=== PATIENT | female | born 1930 | race Caucasian/White ===

== ENCOUNTER → 2016-09-16 | Outpatient (CLI) | payer MEDICARE, BC ==
--- NOTE | 2016-09-17 07:57 | US ---
EXAMINATION TYPE: US carotid duplex BILAT DATE OF EXAM: 09/16/2016 4:38 PM COMPARISON: NONE CLINICAL HISTORY: Near Syncope R55. EXAM MEASUREMENTS: RIGHT: Peak Systolic Velocity (PSV) cm/sec ----- Right CCA: 41.8 ----- Right ICA: 95.5 ----- Right ECA: 75.3 ICA/CCA ratio: 2.3 RIGHT: End Diastole cm/sec ----- Right CCA: 10.4 ----- Right ICA: 30.1 ----- Right ECA: 0.0 LEFT: Peak Systolic Velocity (PSV) cm/sec ----- Left CCA: 67.7 ----- Left ICA: 62.6 ----- Left ECA: 53.7 ICA/CCA ratio: 0.9 LEFT: End Diastole cm/sec ----- Left CCA: 14.3 ----- Left ICA: 20.3 ----- Left ECA: 0.0 VERTEBRALS (direction of flow): Right Vertebral: Antegrade Left Vertebral: Antegrade No significant stenosis seen. IMPRESSION: 1. Right-sided ICA stenosis estimated at between 1569%. Mild plaque seen. 2. No significant stenosis left carotid system. Criteria for Assigning % of Stenosis / Diameter reduction (Estimation based on the indirect measurements of the internal carotid artery velocities (ICA PSV). 1. Normal (no stenosis)=ICA PSV < 125 cm/s: ratio < 2.0: ICA EDV<40 cm/s. 2. Less than 50% stenosis=ICA PSV < 125 cm/s: ratio < 2.0: ICA EDV<40 cm/s. 3. 50 to 69% stenosis=ICA PSV of 125 to 230 cm/s: ration 2.0 ? 4.0: ICA EDV 40-100 cm/s. 4. Greater than 70% stenosis to near occlusion= ICA PSV > 230 cm/s: ratio > 4.0: ICA EDV > 100 cm/s. 5. Near occlusion= ICA PSV velocities may be low or undetectable: variable ratio and ICA EDV. 6. Total occlusion=unable to detect flow.
== END | disposition home or self-care (01) ==
LOC: RADUSWWP 16:12
PROVIDERS: ATTEND Family Medicine
DX: I65.21 Occlusion and stenosis of right carotid artery (principal)
CPT/HCPCS: 93880

== ENCOUNTER → 2016-12-18 | Outpatient (CLI) | payer MEDICARE, BC | END | disposition home or self-care (01) | LOC: LABWHC1 10:13 | PROVIDERS: ATTEND Internal Medicine Endocrinology, Diabetes & Metabolism | DX: E03.8 Other specified hypothyroidism (principal) | CPT/HCPCS: 36415; 84439; 84443 ==

== ENCOUNTER → 2017-02-15 | Outpatient (CLI) | payer MEDICARE, BC | END | disposition home or self-care (01) | LOC: LABWHC1 10:17 | PROVIDERS: ATTEND Internal Medicine Endocrinology, Diabetes & Metabolism | DX: E03.8 Other specified hypothyroidism (principal) | CPT/HCPCS: 36415; 84439; 84443 ==

== ENCOUNTER → 2017-04-04 | Outpatient (CLI) | payer MEDICARE, BC ==
--- NOTE | 2017-04-04 17:21 | US ---
EXAMINATION TYPE: US thyroid st tissue head/neck DATE OF EXAM: 04/04/2017 COMPARISON: NONE CLINICAL HISTORY: E04.1 Rt Neck Nodule. Pt states recent abnormal labs GLAND SIZE: Right Lobe: 3.6 x 2.3 x 2.4 cm Overall Parenchyma: heterogenous Left Lobe: 3.7 x 1.2 x 1.2 cm Overall Parenchyma: heterogeneous Isthmus Thickness: 0.3 cm NODULES RIGHT: # of nodules measured on right: 3 1. 1.3 X 1.1 x 1.4 cm hypoechoic mixed nodule at the mid pole with well-defined margins; This nodul e is wider than tall and shows intranodular vascularity. Prior size: No prior 2. 2.0 X 1.3 x 1.7 cm hypoechoic solid nodule at the lower pole with well-defined margins; This nodu le is wider than tall and shows intranodular vascularity. Prior size: No prior 3. 0.8 X 0.6 x 0.7 cm isoechoic solid nodule at the upper pole with poorly defined margins;This nodu le is wider than tall and shows intranodular vascularity. Prior size: No prior LEFT: # of nodules measured on left: 3 1. 0.6 X 0.6 x 0.6 cm hypoechoic solid nodule at the upper pole with well-defined margins; This no dule is wider than tall and shows intranodular vascularity. Prior size: No prior 2. 0.7 X 0.7 x 0.6 cm isoechoic solid nodule at the upper pole with well-defined margins; This nodu le is wider than tall and shows intranodular vascularity. Prior size: No prior 3. 0.8 X 0.9 x 0.8 cm isoechoic solid nodule at the mid pole with well-defined margins; This nodule is wider than tall and shows intranodular vascularity. Prior size: No prior ISTHMUS: # of nodules measured in the isthmus: 0 Bilateral neck scanned, no evidence of lymphadenopathy. Multiple nodules bilaterally, largest 3 measu red on each side, with hypervascular thyroid gland bilaterally IMPRESSION: Findings are consistent with multinodular goiter. No dominant thyroid mass seen.
== END | disposition home or self-care (01) ==
LOC: RADUSWWP 16:11
PROVIDERS: ATTEND Family Medicine
DX: E04.1 Nontoxic single thyroid nodule (principal)
CPT/HCPCS: 76536

== ENCOUNTER → 2017-08-19 | Outpatient (CLI) | payer MEDICARE, BC | END | disposition home or self-care (01) | LOC: LABWHC1 11:23 | PROVIDERS: ATTEND Internal Medicine Endocrinology, Diabetes & Metabolism | DX: E03.8 Other specified hypothyroidism (principal) | CPT/HCPCS: 36415; 84443 ==

== ENCOUNTER → 2017-10-06 | Outpatient (CLI) | payer MEDICARE, BC ==
--- NOTE | 2017-10-06 11:54 | US ---
EXAMINATION TYPE: US thyroid st tissue head/neck DATE OF EXAM: 10/06/2017 COMPARISON: NONE CLINICAL HISTORY: E03.08 HYPOTHYROIDISM,R53.83 FATIGUE; takes thyroid medication GLAND SIZE: Right Lobe: 3.6 x 2.6 x 2.1cm Overall Parenchyma: heterogenous Left Lobe: 2.9 x 1.3 x 1.3 cm Overall Parenchyma: heterogeneous Isthmus Thickness: 0.6 cm NODULES RIGHT: # of nodules measured on right: 3 1. 1.3 X 1.3 x 1.3 cm hypoechoic mixed nodule at the mid pole with well-defined margins. This nodu le is wider as is tall and shows no intranodular vascularity. Prior size: 1.3 x 1.1 x 1.4 cm 2. 2.3 X 1.3 x 1.2 cm hypoechoic mixed nodule at the lower pole with well-defined margins. This nod ule is wider than tall and shows intranodular vascularity. Prior size: 2.3 x 1.3 x 1.7 cm 3. 0.9 X 1.0 x 0.9 cm hyperechoic mixed nodule at the upper pole with well-defined margins. This no dule is wider than tall and shows intranodular vascularity. Prior size: 0.8 x 0.6 x 0.7 cm LEFT: # of nodules measured on left: 4 largest of multiple 1. 0.6 X 0.6 x 0.6 cm hypoechoic mixed nodule at the upper pole with well-defined margins. This no dule is wide as is tall and shows intranodular vascularity. Prior size: 0.6 x 0.6 x 0.6 cm 2. 0.9 X 0.7 x 0.7 cm hypoechoic solid nodule at the upper pole with well-defined margins. This nod ule is wide as is tall and shows intranodular vascularity. Prior size: 0.7 x 0.7 x 0.6 cm 3. 0.7 X 0.7 x 0.8 cm hypoechoic solid nodule at the mid pole with well-defined margins; present wit h microcalcification. This nodule is taller than wide and shows intranodular vascularity. Prior size: 0.8 x 0.9 x 0.8 cm 4. 0.6 X 0.6 x 0.4 cm hyperechoic solid nodule at the mid lateral pole with well-defined margins; pr esent with microcalcification. This nodule is wider than tall and shows no intranodular vascularity. Prior size: not seen ISTHMUS: # of nodules measured in the isthmus: hypoechoic lesion of 3 nodules seen lower isthmus/ lower left thyroid 1. 0.5 X 0.5 x 0.4 cm hypoechoic solid nodule at the lower pole with well-defined margins. This no dule is wider than tall and shows no intranodular vascularity. Prior size: none seen Bilateral neck scanned, no evidence of lymphadenopathy. IMPRESSION: Multiple bilateral thyroid nodules, similar to prior exam.
== END | disposition home or self-care (01) ==
LOC: RADUSWWP 09:17
PROVIDERS: ATTEND Internal Medicine Endocrinology, Diabetes & Metabolism
DX: E04.2 Nontoxic multinodular goiter (principal); R53.83 Other fatigue; E03.8 Other specified hypothyroidism
CPT/HCPCS: 76536

== ENCOUNTER → 2017-10-27 | Outpatient (CLI) | payer MEDICARE, BC | END | disposition home or self-care (01) | LOC: LABWHC1 12:05 | PROVIDERS: ATTEND Internal Medicine Endocrinology, Diabetes & Metabolism | DX: E03.8 Other specified hypothyroidism (principal) | CPT/HCPCS: 36415; 84443 ==

== ENCOUNTER 2017-10-28 07:06 | Emergency (ER) | payer MEDICARE, BC ==
[2017-10-28 07:14] VITALS: TEMP 97.8
[2017-10-28] MEDS ORDERED: SODIUM CHLORIDE 0.9% 1,000 ML IV STA (07:37)
[2017-10-28] MEDS ORDERED: METOCLOPRAMIDE 5 MG/ML 2 ML VIAL IVP STA (07:38)
[2017-10-28] MEDS ORDERED: MECLIZINE 12.5 MG TAB PO STA (07:38)
--- NOTE | 2017-10-28 07:40 | ED ---
General Adult HPI - General Chief complaint: Dizziness Stated complaint: DIZZINESS Time Seen by Provider: 10/28/17 07:33 Source: patient, family, RN notes reviewed Mode of arrival: EMS Limitations: no limitations - History of Present Illness Initial comments: Patient is a pleasant 87-year-old female presenting to the emergency Department with complaints of dizziness. Patient awoke with symptoms this morning. Patient feels as if she is spinning. Patient states this is somewhat severe. Symptoms increased with eyes open and movement. Patient does have associated nausea. Patient is unclear whether or not she has had similar symptoms previously however daughter is present and states patient has had similar symptoms at least once and probably twice previously. No headache. No confusion. No weakness. - Related Data Home Medications Medication Instructions Recorded Confirmed Calcium Carbonate/Vitamin D3 1 tab PO BID 08/14/14 10/28/17 [Calcium 600-Vit D3 400 Tablet] amLODIPine BES/OLMESARTAN MED 1 tab PO DAILY 08/14/14 10/28/17 [Aniyah 5-40 mg Tablet] Levothyroxine Sodium [Synthroid] 25 mcg PO DAILY 10/28/17 10/28/17 Olmesartan Medoxomil 40 mg PO DAILY 10/28/17 10/28/17 Previous Rx's Medication Instructions Recorded Meclizine [Antivert] 25 mg PO TID PRN #12 tab 10/28/17 Metoclopramide HCl [Reglan] 10 mg PO Q6HR PRN #15 tablet 10/28/17 Allergies Allergy/AdvReac Type Severity Reaction Status Date / Time Influenza Virus Vaccines Allergy Unknown Verified 10/28/17 07:35 codeine AdvReac Rash/Hives Verified 10/28/17 07:35 ibuprofen AdvReac Nausea & Verified 10/28/17 07:35 Vomiting iodine AdvReac Rash/Hives Verified 10/28/17 07:35 Review of Systems ROS Statement: Those systems with pertinent positive or pertinent negative responses have been documented in the HPI. ROS Other: All systems not noted in ROS Statement are negative. Constitutional: Denies: fever Eyes: Denies: eye pain ENT: Denies: ear pain Respiratory: Denies: cough Cardiovascular: Denies: chest pain Endocrine: Denies: fatigue Gastrointestinal: Reports: nausea. Denies: vomiting Genitourinary: Denies: dysuria Musculoskeletal: Denies: back pain Skin: Denies: rash Neurological: Reports: vertigo. Denies: headache, weakness, confusion Past Medical History Past Medical History: GERD/Reflux, Hypertension, Osteoarthritis (OA), Thyroid Disorder History of Any Multi-Drug Resistant Organisms: None Reported Past Surgical History: Appendectomy, Cholecystectomy, Orthopedic Surgery, Tonsillectomy Additional Past Surgical History / Comment(s): bilateral hips, right ankle; cataract sx bilateral removed Past Anesthesia/Blood Transfusion Reactions: No Reported Reaction Past Psychological History: No Psychological Hx Reported Smoking Status: Never smoker Past Alcohol Use History: None Reported Past Drug Use History: None Reported - Past Family History Mother Family Medical History: No Reported History General Exam Limitations: no limitations General appearance: alert, in no apparent distress Head exam: Present: atraumatic Eye exam: Present: normal appearance, PERRL, EOMI, nystagmus ENT exam: Present: normal oropharynx Neck exam: Present: normal inspection Respiratory exam: Present: normal lung sounds bilaterally Cardiovascular Exam: Present: regular rate, normal rhythm GI/Abdominal exam: Present: soft. Absent: tenderness Extremities exam: Present: normal inspection Neurological exam: Present: alert, oriented X3, CN II-XII intact. Absent: motor sensory deficit Expanded Neurological exam: Present: protecting the airway Patient oriented to: Present: person, place, time Speech: Present: fluid speech Cranial nerves: EOM's Intact: Normal Sensory exam: Upper Extremity Light Touch: Normal, Lower Extremity Light Touch: Normal Motor strength exam: RUE: 5, LUE: 5, RLE: 5, LLE: 5 Eye Response: (4) open spontaneously Motor Response: (6) obeys commands Verbal Response: (5) oriented Psychiatric exam: Present: normal affect, normal mood Skin exam: Present: normal color Course Vital Signs 10/28/17 10/28/17 07:10 10:46 Temperature 97.8 F Pulse Rate 70 74 Respiratory 22 18 Rate Blood Pressure 203/84 183/83 O2 Sat by Pulse 100 97 Oximetry EKG Findings - EKG Comments: EKG Findings:: Sinus rhythm 71. GA 102. QRS 76. QT 392. QTC 425. Normal axis. LVH criteria. No acute ST change. Medical Decision Making - Medical Decision Making Patient reevaluated and resting comfortably in bed. Symptoms have significantly improved. Patient was able to get up and ambulate without any difficulty. Patient is comfortable with discharge home. Patient and family updated on results and need for follow-up. - Lab Data Result diagrams: 10/28/17 07:30 10/28/17 07:30 Lab Results 10/28/17 10/28/17 10/28/17 Range/Units 07:30 07:30 07:30 WBC 5.2 (3.8-10.6) k/uL RBC 4.28 (3.80-5.40) m/uL Hgb 12.1 (11.4-16.0) gm/dL Hct 36.5 (34.0-46.0) % MCV 85.1 (80.0-100.0) fL MCH 28.2 (25.0-35.0) pg MCHC 33.1 (31.0-37.0) g/dL RDW 14.0 (11.5-15.5) % Plt Count 228 (150-450) k/uL Neutrophils % 64 % Lymphocytes % 24 % Monocytes % 5 % Eosinophils % 3 % Basophils % 1 % Neutrophils # 3.4 (1.3-7.7) k/uL Lymphocytes # 1.3 (1.0-4.8) k/uL Monocytes # 0.3 (0-1.0) k/uL Eosinophils # 0.2 (0-0.7) k/uL Basophils # 0.0 (0-0.2) k/uL PT 10.1 (9.0-12.0) sec INR 1.0 (<1.2) APTT 22.0 (22.0-30.0) sec Sodium 137 (137-145) mmol/L Potassium 3.8 (3.5-5.1) mmol/L Chloride 100 (98-107) mmol/L Carbon Dioxide 24 (22-30) mmol/L Anion Gap 13 mmol/L BUN 18 H (7-17) mg/dL Creatinine 0.67 (0.52-1.04) mg/dL Est GFR (CKD-EPI)AfAm >90 (>60 ml/min/1.73 sqM) Est GFR (CKD-EPI)NonAf 79 (>60 ml/min/1.73 sqM) Glucose 98 (74-99) mg/dL Calcium 9.3 (8.4-10.2) mg/dL Total Bilirubin 0.9 (0.2-1.3) mg/dL AST 23 (14-36) U/L ALT 20 (9-52) U/L Alkaline Phosphatase 84 (38-126) U/L Total Protein 6.8 (6.3-8.2) g/dL Albumin 4.2 (3.5-5.0) g/dL - Radiology Data Radiology results: report reviewed (Computed tomography scan of the brain shows some atrophy. No acute process.) Disposition Clinical Impression: Vertigo Disposition: HOME SELF-CARE Condition: Stable Instructions: Dizziness (ED) Additional Instructions: Please follow-up with primary care physician this week. Return for uncontrolled dizziness, confusion or weakness, headache, worsening or changing symptoms or other concerns. Prescriptions: Meclizine [Antivert] 25 mg PO TID PRN #12 tab PRN Reason: dizziness Metoclopramide HCl [Reglan] 10 mg PO Q6HR PRN #15 tablet PRN Reason: Nausea Is patient prescribed a controlled substance at d/c from ED?: No Referrals: Tenzin Webb DO [Primary Care Provider] - 1-2 days Time of Disposition: 11:13
[2017-10-28 07:55] LABS: Basophils % (A) 1 %; Eosinophils # (A) 0.2 k/uL (0-0.7); Eosinophils % (A) 3 %; HCT 36.5 % (34.0-46.0); HGB 12.1 gm/dL (11.4-16.0); Lymphocytes # (A) 1.3 k/uL (1.0-4.8); Lymphocytes % (A) 24 %; MCH 28.2 pg (25.0-35.0); MCHC 33.1 g/dL (31.0-37.0); MCV 85.1 fL (80.0-100.0); Mean Platelet Volume 7.8; Monocytes # (A) 0.3 k/uL (0-1.0); Monocytes % (A) 5 %; Neutrophils # (A) 3.4 k/uL (1.3-7.7); Neutrophils % (A) 64 %; Platelet Count 228 k/uL (150-450); RBC 4.28 m/uL (3.80-5.40); WBC 5.2 k/uL (3.8-10.6)
[2017-10-28 08:04] LABS: ALT 20 U/L (9-52); AST 23 U/L (14-36); Albumin 4.2 g/dL (3.5-5.0); Alkaline Phosphatase 84 U/L (38-126); Anion Gap 13 mmol/L; Blood Urea Nitrogen 18 mg/dL (7-17); Calcium 9.3 mg/dL (8.4-10.2); Carbon Dioxide 24 mmol/L (22-30); Chloride 100 mmol/L (98-107); Glucose 98 mg/dL (74-99); Potassium 3.8 mmol/L (3.5-5.1); Sodium 137 mmol/L (137-145); Total Bilirubin 0.9 mg/dL (0.2-1.3); Total Protein 6.8 g/dL (6.3-8.2)
[2017-10-28 08:14] LABS: Prothrombin Time 10.1 sec (9.0-12.0)
[2017-10-28] MEDS ORDERED: LORazepam 2 MG/ML INJ IV STA (08:58)
[2017-10-28] MEDS ORDERED: SCOPOLAMINE 1.5MG/72HR PATCH TRANSDERM STA (08:59)
--- NOTE | 2017-10-28 10:27 | CT ---
EXAMINATION TYPE: CT brain wo con DATE OF EXAM: 10/28/2017 COMPARISON: 02/23/2016 INDICATION: C/O Dizziness DLP: 1108.4 mGycm, Automated exposure control for dose reduction was used. CONTRAST: None CT of the brain is performed utilizing 3 mm thick sections through the posterior fossa and 3 mm thick sections through the remaining calvarium. Study is performed within 24 hours of arrival to the hosp ital. No abnormal hyperdensity is present to suggest an acute intracranial hemorrhage. No mass lesion is evident. No acute infarcts are evident. There is very ventricular white matter hypodensity, likely on the basi s of chronic white matter ischemic changes. Ventricles and sulci are prominent for the patient age. Paranasal sinuses and mastoid air cells within the [id number] are clear. IMPRESSIONS: 1. Age-related atrophy with chronic appearing periventricular white matter ischemic type changes.
[2017-10-28 10:52] VITALS: RESP 18
[2017-10-28 11:52] VITALS: BP 160/71; PULSE 79
== END 2017-10-28 11:52 | disposition home or self-care (01) ==
LOC: EC 07:06
DX: R42 Dizziness and giddiness (principal); R11.0 Nausea; I10 Essential (primary) hypertension; E07.9 Disorder of thyroid, unspecified; Z79.899 Other long term (current) drug therapy; Z88.6 Allergy status to analgesic agent; Z88.5 Allergy status to narcotic agent; Z88.8 Allergy status to other drugs, medicaments and biological substances; Z88.7 Allergy status to serum and vaccine; Z53.8 Procedure and treatment not carried out for other reasons
CPT/HCPCS: 36415; 93005; 80053; 85025; 85610; 85730; 70450; 99285; 96374; 96361 ×4; J2765

== ENCOUNTER → 2018-03-06 | Outpatient (CLI) | payer MEDICARE, BC ==
--- NOTE | 2018-03-06 09:58 | CT ---
EXAMINATION TYPE: CT abdomen wo con DATE OF EXAM: 03/06/2018 HISTORY: abdominal pain, peripheral vascular disease unspecified CT DLP: 101.70 mGycm. Automated Exposure Control for Dose Reduction was Utilized. TECHNIQUE: CT scan of the abdomen is performed without oral or IV contrast. COMPARISON: CT abdomen and pelvis February 23, 2016. FINDINGS: Within the limitations of a non-contrast study, the following observations are made. LUNG BASES: There is redemonstration of cardiomegaly with right atrial and ventricular dilatation. Th ere is redemonstration of by basilar linear scarring and/or atelectasis. There is coronary artery areli cification in the RCA distribution. There is tiny pericardial effusion. LIVER/GB: Cholecystectomy clips are redemonstrated. Prominence of the portal vein is again seen. PANCREAS: No significant abnormality is seen. SPLEEN: No significant abnormality is seen. ADRENALS: No significant abnormality is seen. KIDNEYS: No renal calculi or hydronephrosis is seen bilaterally. Slightly low lying right kidney is r edemonstrated BOWEL: Evaluation of bowel is suboptimal due to lack of enteric contrast and patient having little in tra-abdominal fat. There is no suspicious small or large bowel dilatation seen. LYMPH NODES: No greater than 1cm abdominal lymph nodes are appreciated. OSSEOUS STRUCTURES: Left-sided pars defect L5 level is seen sagittal image 48. No significant spondyl olisthesis. Multilevel facet arthropathy lower lumbar spine is seen. OTHER: There is moderate to severe calcite plaque of the aorta extending into branch vessels. 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 IMPRESSION: No suspicious new or acute finding on noncontrast study to account for patient's symptoms .
== END | disposition home or self-care (01) ==
LOC: RADUSWWP 07:19
PROVIDERS: ATTEND Family Medicine
DX: I73.9 Peripheral vascular disease, unspecified (principal); R10.9 Unspecified abdominal pain
CPT/HCPCS: 74150; 93923

== ENCOUNTER → 2018-03-13 | Outpatient (CLI) | payer MEDICARE, BC | END | disposition home or self-care (01) | LOC: LABWHC1 12:26 | PROVIDERS: ATTEND Internal Medicine Endocrinology, Diabetes & Metabolism | DX: E03.8 Other specified hypothyroidism (principal) | CPT/HCPCS: 36415; 84443 ==

== ENCOUNTER → 2018-05-15 | Outpatient (CLI) | payer MEDICARE, BC ==
--- NOTE | 2018-05-18 07:35 | CT ---
EXAMINATION TYPE: CT soft tissue neck wo con DATE OF EXAM: 05/15/2018 COMPARISON: Ultrasound 10/06/2017 HISTORY: thyroid enlargement CT DLP: 280 mGycm CONTRAST: Patient injected with 0 mL of Isovue 300. TECHNIQUE: Axial images at 3 mm thick sections. Reconstructed images in the coronal plane and sagitt al plane are reviewed. FINDINGS: Limited CT sections are obtained the lung apices. The lung apices appear clear. CT neck: The torus tubarius and fossa of Rosenmuller are normal. Maintainability Engineer spaces are normal. Para nasal sinuses and mastoid air cells are clear. Parotid glands appear normal and symmetrical. Submandibular glands, are normal. Parapharyngeal spac es are normal. No suspicious adenopathy is evident. There are a few small shotty lymph nodes present greater on the right side of the neck. The hypopharynx appears within normal limits. Vocal cord level appear symmetrical. Thyroid is enlarged and nodular. Several subtle hypodensities are present on this noncontrast study. 2 larger nodules appear to be on the right thyroid lobe measuring 1.1 and 1.0 cm in size. These appea r to be present on the thyroid ultrasound comparison of 10/06/2017. Large vascular structures are adj acent on the right. The right subclavian artery is nearly in the midline anterior to the trachea and directly adjacent to the thyroid lobe. The left common carotid artery likewise has a medial course an terior to the trachea in the suprasternal notch region. Upper lung trcaey appear clear. The ascending thoracic aortic arch is somewhat prominent at 3.3 cm. T his appears to taper to its visualized course. Vascular calcification is within the aortic arch. The hemiazygos vein may right posterior to the trachea is partially visualized within the [id number]. Degenerative changes are noted within the cervical facets. Kyphosis in the upper thoracic spine. IMPRESSIONS: 1. Heterogenous appearing thyroid with multiple nodules present. Enlarging thyroid nodules compared t o the ultrasound of 10/06/2017 are not identified. 2. Large arterial structures are in the midline some of which reside anterior to the trachea discusse d above. These are directly adjacent to the thyroid
== END | disposition home or self-care (01) ==
LOC: RADCTMAIN 17:18
PROVIDERS: ATTEND Family Medicine
DX: E04.9 Nontoxic goiter, unspecified (principal)
CPT/HCPCS: 70490

== ENCOUNTER 2018-07-15 15:54 | Emergency (ER) | payer MEDICARE, BC ==
[2018-07-15 16:01] VITALS: BP 169/86; PULSE 87; RESP 18; TEMP 98.2
--- NOTE | 2018-07-15 17:10 | ED ---
General Adult HPI - General Chief complaint: ENT Stated complaint: Lip Bleeding Source: patient, RN notes reviewed Mode of arrival: ambulatory Limitations: no limitations - History of Present Illness Initial comments: Patient is an 88-year-old female with history of skin cancer who presents the emergency department with complaint of lower lip bleeding that started earlier today. She reports wearing lipstick and using Vaseline. She states that she has had this red spot on her lip for a few months. Patient denies any recent fever, chills, shortness of breath, chest pain, back pain, abdominal pain, nausea or vomiting, numbness or tingling, headaches or visual changes, or any other complaints. - Related Data Home Medications Medication Instructions Recorded Confirmed Calcium Carbonate/Vitamin D3 1 tab PO BID 08/14/14 10/28/17 [Calcium 600-Vit D3 400 Tablet] amLODIPine BES/OLMESARTAN MED 1 tab PO DAILY 08/14/14 10/28/17 [Aniyah 5-40 mg Tablet] Levothyroxine Sodium [Synthroid] 25 mcg PO DAILY 10/28/17 10/28/17 Olmesartan Medoxomil 40 mg PO DAILY 10/28/17 10/28/17 Previous Rx's Medication Instructions Recorded Meclizine [Antivert] 25 mg PO TID PRN #12 tab 10/28/17 Metoclopramide HCl [Reglan] 10 mg PO Q6HR PRN #15 tablet 10/28/17 Allergies Allergy/AdvReac Type Severity Reaction Status Date / Time Influenza Virus Vaccines Allergy Unknown Verified 07/15/18 15:58 codeine AdvReac Rash/Hives Verified 07/15/18 15:58 ibuprofen AdvReac Nausea & Verified 07/15/18 15:58 Vomiting iodine AdvReac Rash/Hives Verified 07/15/18 15:58 Review of Systems ROS Statement: Those systems with pertinent positive or pertinent negative responses have been documented in the HPI. ROS Other: All systems not noted in ROS Statement are negative. Past Medical History Past Medical History: GERD/Reflux, Hypertension, Osteoarthritis (OA), Thyroid Disorder History of Any Multi-Drug Resistant Organisms: None Reported Past Surgical History: Appendectomy, Cholecystectomy, Orthopedic Surgery, Tonsillectomy Additional Past Surgical History / Comment(s): bilateral hips, right ankle; cataract sx bilateral removed Past Anesthesia/Blood Transfusion Reactions: No Reported Reaction Past Psychological History: No Psychological Hx Reported Smoking Status: Never smoker Past Alcohol Use History: None Reported Past Drug Use History: None Reported - Past Family History Mother Family Medical History: No Reported History General Exam Limitations: no limitations General appearance: alert, in no apparent distress Head exam: Present: atraumatic, normocephalic Eye exam: Present: normal appearance ENT exam: Present: other (Lower lip with small laceration; no active bleeding.) Respiratory exam: Present: normal lung sounds bilaterally. Absent: wheezes, rales, rhonchi Cardiovascular Exam: Present: regular rate, normal rhythm Neurological exam: Present: alert, oriented X3 Course Vital Signs 07/15/18 07/15/18 15:58 18:40 Temperature 98.2 F 98.2 F Pulse Rate 87 87 Respiratory 18 18 Rate Blood Pressure 169/86 169/86 O2 Sat by Pulse 99 99 Oximetry Medical Decision Making - Medical Decision Making I recommended the patient follow-up with a solar project coordination specialist for evaluation of her lip. Patient reports that she has a solar project coordination specialist already. I encouraged the patient to use lip moisturizers frequently. Patient was given lip balm here. Her lips appear very dry. Case discussed in detail with attending physician Dr. Reveles. Disposition Clinical Impression: Lip dryness Disposition: HOME SELF-CARE Condition: Good Instructions (If sedation given, give patient instructions): Sunscreen (On the skin) Additional Instructions: Follow-up with your PCP and solar project coordination specialist in 1 to 2 days. Use lip moisturizer frequently. Return to the emergency department if your symptoms worsen or other concerns. Is patient prescribed a controlled substance at d/c from ED?: No Referrals: Tenzin Webb DO [Primary Care Provider] - 1-2 days Time of Disposition: 18:26
== END 2018-07-15 18:40 | disposition home or self-care (01) ==
LOC: EC 15:54
DX: L98.8 Other specified disorders of the skin and subcutaneous tissue (principal); I10 Essential (primary) hypertension; E07.9 Disorder of thyroid, unspecified; Z88.5 Allergy status to narcotic agent; Z88.6 Allergy status to analgesic agent; Z88.7 Allergy status to serum and vaccine; Z88.8 Allergy status to other drugs, medicaments and biological substances; Z79.890 Hormone replacement therapy; Z79.899 Other long term (current) drug therapy; Z85.828 Personal history of other malignant neoplasm of skin
CPT/HCPCS: 99283

== ENCOUNTER → 2018-09-22 | Outpatient (CLI) | payer MEDICARE, BC ==
--- NOTE | 2018-09-23 07:19 | US ---
EXAMINATION TYPE: US thyroid st tissue head/neck DATE OF EXAM: 09/22/2018 COMPARISON: 10/07/1979 CLINICAL HISTORY: E03.8 Other spcified hypothyroidism. GLAND SIZE: Right Lobe: 3.1 x 2.2 x 1.8cm Overall Parenchyma: heterogenous Left Lobe: 2.8 x 1.4 x 1.0 cm Overall Parenchyma: heterogeneous Isthmus Thickness: 0.3 cm NODULES RIGHT: # of nodules measured on right: 3 1. 0.9 X 0.7 x 1.0 cm hypoechoic mixed nodule at the mid pole with well-defined margins. This nodu le is wider than tall and shows no intranodular vascularity. Prior size: 1.3 x 1.3 x 1.3 cm 2. 1.8 X 1.1 x 1.0 cm isoechoic solid nodule at the lower pole with well-defined margins. This nodu le is taller than wide and shows intranodular vascularity. Prior size: 2.3 x 1.3 x 1.2 cm 3. 1.0 X 0.7 x 0.7 cm echogenic solid nodule at the upper pole with well-defined margins. This nodu le is wider than tall and shows intranodular vascularity. Prior size: 0.9 x 1.0 x 0.9 cm LEFT: # of nodules measured on left: 4 1. 0.6 X 0.5 x 0.5 cm hypoechoic solid nodule at the upper pole with well-defined margins. This no dule is taller than wide and shows intranodular vascularity. Prior size: 0.6 x 0.6 x 0.6 cm 2. 0.4 X 0.6 x 0.5 cm hypoechoic solid nodule at the upper pole with well-defined margins. This nod ule is taller than wide and shows intranodular vascularity. Prior size: 0.9 x 0.7 x 7 cm 3. 0.8 X 0.6 x 0.7 cm isoechoic solid nodule at the mid pole with well-defined margins. This nodule is wider than tall and shows intranodular vascularity. Prior size: 0.7 x 0.7 x 0.8 cm 4. 0.6 X 0.4 x 0.7 cm echogenic solid nodule at the mid lateral pole with well-defined margins. Thi s nodule is wider than tall and shows intranodular vascularity. Prior size: 0.6 x 0.6 x 0.4 cm ISTHMUS: # of nodules measured in the isthmus: 0 Previous nodule not seen on today's study. Bilateral neck scanned, no evidence of lymphadenopathy. Patient of very small body habitus with pulsatile prominent vessels, technically difficult. IMPRESSION: Nonspecific thyroid nodularity is stable.
== END | disposition home or self-care (01) ==
LOC: RADUSWWP 15:25
PROVIDERS: ATTEND Internal Medicine Endocrinology, Diabetes & Metabolism
DX: E04.1 Nontoxic single thyroid nodule (principal); E03.8 Other specified hypothyroidism
CPT/HCPCS: 36415; 76536; 84443

== ENCOUNTER 2019-03-05 08:37 | Emergency (ER) | payer MEDICARE, BC ==
[2019-03-05] MEDS ORDERED: MAG HYDROX/AL HYDROX/SIMETH 30 ML, HYOSCYAMINE ELIXIR 10 ML, CIMETIDINE HCL 300 MG, LID... PO STA ×4 (09:07)
[2019-03-05] MEDS ORDERED: FAMOTIDINE 20 MG/2 ML VIAL IV STA (09:07)
[2019-03-05] MEDS ORDERED: SODIUM CHLORIDE 0.9% 500 ML 500 ML IV STA (09:08)
[2019-03-05 09:47] LABS: Basophils % (A) 1 %; Eosinophils # (A) 0.1 k/uL (0-0.7); Eosinophils % (A) 2 %; HCT 34.6 % (34.0-46.0); HGB 11.7 gm/dL (11.4-16.0); Lymphocytes # (A) 1.5 k/uL (1.0-4.8); Lymphocytes % (A) 34 %; MCH 29.3 pg (25.0-35.0); MCHC 33.9 g/dL (31.0-37.0); MCV 86.3 fL (80.0-100.0); Mean Platelet Volume 6.4; Monocytes # (A) 0.3 k/uL (0-1.0); Monocytes % (A) 6 %; Neutrophils # (A) 2.4 k/uL (1.3-7.7); Neutrophils % (A) 54 %; Platelet Count 247 k/uL (150-450); WBC 4.5 k/uL (3.8-10.6)
[2019-03-05 10:02] LABS: Albumin 4.1 g/dL (3.5-5.0); Calcium 9.2 mg/dL (8.4-10.2); Potassium 3.9 mmol/L (3.5-5.1); Total Bilirubin 0.6 mg/dL (0.2-1.3); Total Protein 7.1 g/dL (6.3-8.2)
--- NOTE | 2019-03-05 10:02 | XR ---
EXAMINATION TYPE: XR chest 2V DATE OF EXAM: 03/05/2019 COMPARISON: Prior chest x-ray August 14, 2014. HISTORY: Left-sided lower chest and epigastric pain. TECHNIQUE: Frontal and lateral views of the chest are obtained. FINDINGS: There is chronic parenchymal change without suspicious focal air space opacity, pleural ef fusion, or pneumothorax seen. The cardiac silhouette size remains enlarged with atherosclerotic aort a. The osseous structures remain demineralized. Exaggerated kyphosis is seen. Cholecystectomy clips are present. IMPRESSION: Chronic changes and cardiomegaly without acute pulmonary process.
--- NOTE | 2019-03-05 10:06 | XR ---
EXAMINATION TYPE: XR KUB DATE OF EXAM: 03/05/2019 9:57 AM CLINICAL HISTORY: Epigastric pain TECHNIQUE: Single upright of the abdomen is obtained. COMPARISON: None. FINDINGS: Moderate degree colonic fecal stasis is seen in the right hemicolon only. No dilated large or small bowel. There is diffuse osseous demineralization. Surgical clips from prior cholecystectomy. Gallbladder is mildly elongated. Extensive atherosclerosis of the abdominal aorta is branches. Parti al visualization of cardiomegaly. Lung bases are well aerated. Bilateral prior fracture fixation of t he hips. No pneumoperitoneum. IMPRESSION: Nonobstructive bowel gas pattern. Right hemicolonic moderate fecal stasis.
[2019-03-05 10:16] LABS: INR 0.9 (<1.2); Partial Thromboplastin Time 22.6 sec (22.0-30.0); Prothrombin Time 10.1 sec (9.0-12.0)
--- NOTE | 2019-03-05 10:53 | ED ---
General Adult HPI - General Chief complaint: Abdominal Pain Stated complaint: Abd Pain Time Seen by Provider: 03/05/19 08:58 Source: patient, RN notes reviewed Mode of arrival: ambulatory Limitations: no limitations - History of Present Illness Initial comments: 89-year-old female with a past medical history of GERD, hypertension, appendectomy, cholecystectomy presents to the emergency department for epigastric pain. States this has been ongoing since last night. States has been intermittent in nature and lasts for a few seconds at a time and then resolves. Denies any associated shortness of breath, radiating pain, or diaphoresis. Patient denies any nausea vomiting diarrhea. Denies any chest pain or shortness of breath. Denies pain radiating anywhere. X-ray states that this time she has no pain whatsoever. Patient is a history of micheal cystectomy.Patient has no other complaints at this time including shortness of breath, chest pain, nausea or vomiting, headache, or visual changes. - Related Data Home Medications Medication Instructions Recorded Confirmed Olmesartan Medoxomil 40 mg PO DAILY 10/28/17 03/05/19 Calcium Carbonate/Vitamin D3 1 tab PO BID@1200,1700 03/05/19 03/05/19 [Caltrate 600 Plus D3 Tablet] Levothyroxine Sodium [Synthroid] 50 mcg PO DAILY 03/05/19 03/05/19 amLODIPine [Norvasc] 5 mg PO DAILY 03/05/19 03/05/19 Previous Rx's Medication Instructions Recorded Omeprazole 40 mg PO DAILY #20 capsule. 03/05/19 Allergies Allergy/AdvReac Type Severity Reaction Status Date / Time Influenza Virus Vaccines Allergy Unknown Verified 03/05/19 09:09 codeine AdvReac Rash/Hives Verified 03/05/19 09:09 ibuprofen AdvReac Nausea & Verified 03/05/19 09:09 Vomiting iodine AdvReac Rash/Hives Verified 03/05/19 09:09 Review of Systems ROS Statement: Those systems with pertinent positive or pertinent negative responses have been documented in the HPI. ROS Other: All systems not noted in ROS Statement are negative. Past Medical History Past Medical History: GERD/Reflux, Hypertension, Osteoarthritis (OA), Thyroid Disorder History of Any Multi-Drug Resistant Organisms: None Reported Past Surgical History: Appendectomy, Cholecystectomy, Orthopedic Surgery, Tonsillectomy Additional Past Surgical History / Comment(s): bilateral hips, right ankle; cataract sx bilateral removed Past Anesthesia/Blood Transfusion Reactions: No Reported Reaction Past Psychological History: No Psychological Hx Reported Smoking Status: Never smoker Past Alcohol Use History: None Reported Past Drug Use History: None Reported - Past Family History Mother Family Medical History: No Reported History General Exam Limitations: no limitations General appearance: alert, in no apparent distress Head exam: Present: atraumatic, normocephalic, normal inspection Eye exam: Present: normal appearance, PERRL, EOMI. Absent: scleral icterus, conjunctival injection, periorbital swelling ENT exam: Present: normal exam, mucous membranes moist Neck exam: Present: normal inspection, full ROM. Absent: tenderness, meningismus, lymphadenopathy Respiratory exam: Present: normal lung sounds bilaterally. Absent: respiratory distress, wheezes, rales, rhonchi, stridor Cardiovascular Exam: Present: regular rate, normal rhythm, normal heart sounds. Absent: systolic murmur, diastolic murmur, rubs, gallop, clicks GI/Abdominal exam: Present: soft, tenderness (Mild tenderness noted to the epigastric area without guarding), normal bowel sounds. Absent: distended, guarding, rebound, rigid Neurological exam: Present: alert Course Vital Signs 03/05/19 08:44 Temperature 97.3 F L Pulse Rate 71 Respiratory 20 Rate Blood Pressure 152/73 O2 Sat by Pulse 99 Oximetry EKG Findings - EKG Comments: EKG Findings:: Normal sinus rhythm, ventricular rate 76, NH interval 136, QTC 438 Medical Decision Making - Medical Decision Making Exam revealed mild epigastric tenderness without guarding. No lower abdominal tenderness. Vitals are stable. CBC CMP unremarkable. Troponin is negative. Chest x-ray shows chronic changes without acute process. X-ray KUB was obtained which shows a nonobstructive bowel gas pattern, right hemicolon a moderate fecal stasis is noted. EKG shows a normal sinus rhythm. Reevaluated patient and she denies any pain whatsoever throughout her stay here in the ER. Patient is a history of GERD and this could be related. Patient will be put on a PPI. I did recommend she follow up with her primary care. I recommended she return here if she has any worsening symptoms. - Lab Data Result diagrams: 03/05/19 09:25 03/05/19 09:25 Lab Results 03/05/19 03/05/19 03/05/19 Range/Units 09:25 09:25 09:25 WBC 4.5 (3.8-10.6) k/uL RBC 4.00 (3.80-5.40) m/uL Hgb 11.7 (11.4-16.0) gm/dL Hct 34.6 (34.0-46.0) % MCV 86.3 (80.0-100.0) fL MCH 29.3 (25.0-35.0) pg MCHC 33.9 (31.0-37.0) g/dL RDW 14.0 (11.5-15.5) % Plt Count 247 (150-450) k/uL Neutrophils % 54 % Lymphocytes % 34 % Monocytes % 6 % Eosinophils % 2 % Basophils % 1 % Neutrophils # 2.4 (1.3-7.7) k/uL Lymphocytes # 1.5 (1.0-4.8) k/uL Monocytes # 0.3 (0-1.0) k/uL Eosinophils # 0.1 (0-0.7) k/uL Basophils # 0.0 (0-0.2) k/uL PT (9.0-12.0) sec INR (<1.2) APTT (22.0-30.0) sec Sodium 136 L (137-145) mmol/L Potassium 3.9 (3.5-5.1) mmol/L Chloride 98 (98-107) mmol/L Carbon Dioxide 30 (22-30) mmol/L Anion Gap 8 mmol/L BUN 20 H (7-17) mg/dL Creatinine 0.86 (0.52-1.04) mg/dL Est GFR (CKD-EPI)AfAm 70 (>60 ml/min/1.73 sqM) Est GFR (CKD-EPI)NonAf 61 (>60 ml/min/1.73 sqM) Glucose 88 (74-99) mg/dL Calcium 9.2 (8.4-10.2) mg/dL Total Bilirubin 0.6 (0.2-1.3) mg/dL AST 23 (14-36) U/L ALT 17 (9-52) U/L Alkaline Phosphatase 76 (38-126) U/L Troponin I <0.012 (0.000-0.034) ng/mL Total Protein 7.1 (6.3-8.2) g/dL Albumin 4.1 (3.5-5.0) g/dL Amylase 91 (30-110) U/L Lipase 100 (23-300) U/L 03/05/19 Range/Units 09:25 WBC (3.8-10.6) k/uL RBC (3.80-5.40) m/uL Hgb (11.4-16.0) gm/dL Hct (34.0-46.0) % MCV (80.0-100.0) fL MCH (25.0-35.0) pg MCHC (31.0-37.0) g/dL RDW (11.5-15.5) % Plt Count (150-450) k/uL Neutrophils % % Lymphocytes % % Monocytes % % Eosinophils % % Basophils % % Neutrophils # (1.3-7.7) k/uL Lymphocytes # (1.0-4.8) k/uL Monocytes # (0-1.0) k/uL Eosinophils # (0-0.7) k/uL Basophils # (0-0.2) k/uL PT 10.1 (9.0-12.0) sec INR 0.9 (<1.2) APTT 22.6 (22.0-30.0) sec Sodium (137-145) mmol/L Potassium (3.5-5.1) mmol/L Chloride (98-107) mmol/L Carbon Dioxide (22-30) mmol/L Anion Gap mmol/L BUN (7-17) mg/dL Creatinine (0.52-1.04) mg/dL Est GFR (CKD-EPI)AfAm (>60 ml/min/1.73 sqM) Est GFR (CKD-EPI)NonAf (>60 ml/min/1.73 sqM) Glucose (74-99) mg/dL Calcium (8.4-10.2) mg/dL Total Bilirubin (0.2-1.3) mg/dL AST (14-36) U/L ALT (9-52) U/L Alkaline Phosphatase (38-126) U/L Troponin I (0.000-0.034) ng/mL Total Protein (6.3-8.2) g/dL Albumin (3.5-5.0) g/dL Amylase (30-110) U/L Lipase (23-300) U/L Disposition Clinical Impression: Epigastric pain Disposition: HOME SELF-CARE Condition: Good Instructions (If sedation given, give patient instructions): Epigastric Pain (ED) Additional Instructions: Please take omeprazole as directed. Please follow-up with primary care in 1-2 days. Return to the emergency department if you have any worsening symptoms. Prescriptions: Omeprazole 40 mg PO DAILY #20 capsule.dr Is patient prescribed a controlled substance at d/c from ED?: No Referrals: Tenzin Webb DO [Primary Care Provider] - 1-2 days Time of Disposition: 11:23
[2019-03-05 11:53] VITALS: BP 166/80; PULSE 78; RESP 18; TEMP 97.6
== END 2019-03-05 11:54 | disposition home or self-care (01) ==
LOC: EC 08:37
DX: R10.13 Epigastric pain (principal); R10.816 Epigastric abdominal tenderness; K21.9 Gastro-esophageal reflux disease without esophagitis; I10 Essential (primary) hypertension; E07.9 Disorder of thyroid, unspecified; Z79.890 Hormone replacement therapy; Z79.899 Other long term (current) drug therapy; Z88.7 Allergy status to serum and vaccine; Z88.5 Allergy status to narcotic agent; Z88.6 Allergy status to analgesic agent; Z88.8 Allergy status to other drugs, medicaments and biological substances; Z90.49 Acquired absence of other specified parts of digestive tract; Z90.89 Acquired absence of other organs
CPT/HCPCS: 36415; 71046; 74018; 80053; 82150; 83690; 84484; 85025; 85610; 85730; 93005; 96374; 99284

== ENCOUNTER → 2019-04-01 | Outpatient (CLI) | payer MEDICARE, BC ==
[2019-04-01 16:54] LABS: T4, Free (Free Thyroxine) 1.4 ng/dL (0.80-1.80)
== END | disposition home or self-care (01) ==
LOC: LABWHC1 10:10
PROVIDERS: ATTEND Internal Medicine Endocrinology, Diabetes & Metabolism
DX: E04.2 Nontoxic multinodular goiter (principal); E03.8 Other specified hypothyroidism
CPT/HCPCS: 36415; 84439; 84443

== ENCOUNTER → 2019-11-26 | Outpatient (CLI) | payer MEDICARE, BC ==
--- NOTE | 2019-11-26 09:25 | US ---
EXAMINATION TYPE: US thyroid st tissue head/neck DATE OF EXAM: 11/26/2019 COMPARISON: US CLINICAL HISTORY: E04.2 GOITER. GLAND SIZE: Right Lobe: 3.2 x 2.2 x 2.0 cm Overall Parenchyma: heterogenous Left Lobe: 3.0 x 0.9 x 1.1 cm Overall Parenchyma: heterogeneous Isthmus Thickness: 0.3 cm NODULES RIGHT: # of nodules measured on right: 3 1. 1.2 X 0.9 x 0.9 cm hyperechoic mixed nodule at the upper pole with well-defined margin. This no dule is wide as is tall and shows intranodular vascularity. Prior size: 0.9 x 0.7 x 1.0 cm 2. 2.1 X 1.5 x 1.0 cm hypoechoic mixed nodule at the lower pole with well-defined margins . This n odule is wider than tall and shows intranodular vascularity. Prior size: 1.8 x 1.1 x 1.0 cm 3. 1.0 X 0.9 x 0.9 cm hypoechoic mixed nodule at the mid medial pole with poorly defined margins. T his nodule is wide as is tall and shows intranodular vascularity. Prior size: 1.0 x 0.7 x 0.7 cm LEFT: # of nodules measured on left: 2 largest of multiple nodules 1. Consolidation of 3 adjacent nodules = 2.1 X 0.8 x 0.7 cm hypoechoic mixed nodules at the mid colby e with well defined margins. This area is wider than tall and shows intranodular vascularity. Prior size: 3 adjacent individual nodules measured prior US 2. 0.6 X 0.7 x 0.4 cm hyperechoic solid nodule at the mid lateral pole with well-defined margins. This nodule is wider than tall and shows no intranodular vascularity. Prior size: 0.6 x 0.4 x 0.7 cm ISTHMUS: # of nodules measured in the isthmus: 0 Bilateral neck scanned: no evidence of lymphadenopathy. IMPRESSION: Exam is stable. Slight differences in size noted above are due to differences in measurement techniqu e. The nodular goiter.
== END | disposition home or self-care (01) ==
LOC: RADUSWWP 07:03
PROVIDERS: ATTEND Internal Medicine Endocrinology, Diabetes & Metabolism
DX: E04.9 Nontoxic goiter, unspecified (principal); E04.2 Nontoxic multinodular goiter
CPT/HCPCS: 76536; 84443